=== PATIENT | male | born 2000 ===

== ENCOUNTER 2021-10-18 08:19 | Emergency (ER) | payer SELFPAY ==
[2021-10-18 09:30] VITALS: BP 111/65
== END 2021-10-18 10:51 | disposition left against medical advice (07) ==
LOC: ED 08:19
DX: M79.605 Pain in left leg (principal); Z53.21 Procedure and treatment not carried out due to patient leaving prior to being seen by health care provider

== ENCOUNTER 2021-11-13 10:40 | Emergency (ER) | payer SELFPAY ==
[2021-11-13 11:04] VITALS: BP 133/86
[2021-11-13 12:07] LABS: Mucus,Urine 1+ /HPF
[2021-11-13 12:08] LABS: WBC,Urine > 182.0 /HPF (0.0-6.0)
[2021-11-13 12:29] LABS: Bilirubin,Urine Negative (Negative); Blood,Urine Small (Negative); Color,Urine Straw (Yellow); Urobilinogen,Urine < 2.0 mg/dL (<2.0)
[2021-11-13] MEDS ORDERED: LIDOCAINE-MPF (1%) 10 MG/1 ML VIAL 5 ML INFILTRATI ONE (13:43)
[2021-11-13] MEDS ORDERED: AZITHROMYCIN 1 GM ORAL PWDR PACKET PO ONE (13:43)
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
== END 2021-11-13 14:40 | disposition home or self-care (01) ==
LOC: ED 10:40
DX: N34.2 Other urethritis (principal); R31.9 Hematuria, unspecified; F17.200 Nicotine dependence, unspecified, uncomplicated; F12.90 Cannabis use, unspecified, uncomplicated; Z79.899 Other long term (current) drug therapy
CPT/HCPCS: 81001; 87086; 99283; J0696; J3490